=== PATIENT | male | born 2000 | race Two or more races ===

== ENCOUNTER 2025-05-08 07:30 | Inpatient (IN) | payer OTHER ==
[~2025-05-08] VITALS: Ht 175.3 cm; Wt 75.3 kg
[2025-05-08 12:26] LABS: BASO % 0.3 % (0.1-1.2); EOS # 0.05 (0.04-0.54); EOS % 0.9 % (0.7-7.0); LYMPH # 1.30 (1.18-3.74); LYMPH % 22.1 % (19.3-53.1); MEAN PLATELET VOLUME 10.50 fl (9.4-12.4); MONO # 0.36 (0.24-0.82); MONO % 6.1 % (4.7-12.5); NEUT # 4.14 (1.56-6.13); NEUT % 70.4 % (34.0-71.1); RED CELL DISTRIBUTION WIDTH 13.2 % (11.6-14.4)
[2025-05-08 12:53] LABS: URINE APPEARANCE Cloudy; URINE BILIRRUBIN Moderate (NEGATIVE); URINE BLOOD Negative; URINE COLOR Dark Yellow; URINE GLUCOSE Negative (NEGATIVE); URINE KETONE 15 (NEGATIVE); URINE LEUKOCYTE Trace; URINE NITRATE Negative; URINE PROTEIN 30 (NEGATIVE); URINE UROBILINOGEN 2.0 E.U./dl
[2025-05-08 12:54] LABS: INR 1.07
[2025-05-08 12:57] LABS: URINE BACTERIA 8.3 uL (0.0-1933); URINE CAST 0.73 uL (0.0-1.40); URINE EPITHELIAL CELLS 0.6 uL (0.0-38.8); URINE RBC 6.8 uL (0.0-20.8); URINE WBC 41.2 uL (0.0-23.2)
[2025-05-08 13:05] LABS: ALT/SGPT 62.0 U/L (12-78); AST/SGOT 22.0 U/L (15-37); BILIRUBIN TOTAL 1.18 mg/dL (0.3-1.2); BUN CREA RATIO 20.0 (7.0-25.0); CREATININE SERUM 0.56 mg/dL (0.70-1.30); GFR 176.36; GLOBULINA 3.2 G/DL (2.4-3.5); GLUCOSE FASTING 92.0 mg/dL (65-100); OSMOLALITY SERUM 284.0 MOSM/KG (275-295)
[2025-05-08 13:15] LABS: URINE CRYSTALS MANY /HPF; URINE MUCUS HEAVY
[2025-05-14] MEDS ORDERED: MORPHINE SULFATE 4 MG/ML CARTRIDGE IV PRN (10:15)
[2025-05-14] MEDS ORDERED: SUGAMMADEX SODIUM 200 MG/2 ML VIAL IV ONE (11:00)
[2025-05-14] MEDS ORDERED: CEFAZOLIN SODIUM 1,000 MG VIAL IV ONE (11:00)
[2025-05-14 14:32] VITALS: BP 115/64; O2SAT 99
[2025-05-14] MEDS ORDERED: ENOXAPARIN SODIUM 40 MG/0.4 ML SYRINGE SUBCUTANEO SCH (17:00)
[2025-05-15 02:12] VITALS: BP 109/66; O2SAT 97
[2025-05-15 08:00] VITALS: BP 111/66; O2SAT 99
[2025-05-15 16:00] VITALS: BP 108/63; O2SAT 96
[2025-05-16 01:07] VITALS: BP 107/61; O2SAT 97
[2025-05-16 09:00] VITALS: BP 106/67; O2SAT 99
== END 2025-05-16 12:57 | disposition home or self-care (01) | DRG 328 ==
LOC: EDSTATUS 07:30 → O/R 05-14 05:26 → SURH 05-14 07:00 → CIR.AMB 05-14 07:30 → EDSTATUS 05-14 07:30 → SURH 05-14 14:55
PROVIDERS: ADMIT Surgery; ATTEND Surgery
PROC: 8E0W4CZ Robotic Assisted Procedure of Trunk Region, Percutaneous Endoscopic Approach (ICD-10-PCS; 2025-05-14)
PROC: 0D844ZZ Division of Esophagogastric Junction, Percutaneous Endoscopic Approach (ICD-10-PCS; principal; 2025-05-14 07:00)
DX: K22.0 Achalasia of cardia (principal)
CPT/HCPCS: 43279; S2900